=== PATIENT | female | born 1995 | race African-American/Black ===

== ENCOUNTER 2021-04-18 14:44 | Outpatient (CLI) | payer BC | END 2021-04-18 14:45 | disposition home or self-care (01) | LOC: CSHULT 14:44 | PROVIDERS: ATTEND Nurse Practitioner | DX: R10.2 Pelvic and perineal pain (principal) | CPT/HCPCS: 76856 ==

== ENCOUNTER 2023-03-20 15:09 | Emergency (ER) | payer BC | END 2023-03-20 17:26 | disposition home or self-care (01) | LOC: CSHERS 15:09 | DX: O99.891 Other specified diseases and conditions complicating pregnancy (principal); R10.9 Unspecified abdominal pain; O99.011 Anemia complicating pregnancy, first trimester; O99.331 Smoking (tobacco) complicating pregnancy, first trimester; F17.210 Nicotine dependence, cigarettes, uncomplicated; Z3A.01 Less than 8 weeks gestation of pregnancy | CPT/HCPCS: 76856 ==